=== PATIENT | female | born 1985 | race Caucasian/White ===

== ENCOUNTER → 2018-12-19 | Outpatient (CLI) | payer OTHER ==
--- NOTE | 2018-12-19 12:02 | Diagnostic Imaging Report ---
PROCEDURE: US Non-ob pelvis comp/trans. TECHNIQUE: Multiple realtime grayscale images were obtained of the pelvis in various projections endovaginally. Transabdominal imaging was also performed. INDICATION: Lower abdominal pain. FINDINGS: Uterus measures 8.7 x 5.5 x 3.8 cm. There appear to be tow separate endometrial canals suggestive of either a septate or a bicornuate uterus. Endometrial thickness is approximately 7-9 mm. No myometrial mass is seen. Ovaries are not well visualized. There is a cyst in the left adnexa approximately 3.5 cm in size and likely ovarian. No free fluid is seen. IMPRESSION: 1. 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 2. 3.5 cm left adnexal cyst, likely ovarian. No other significant abnormality is seen. Dictated by: Dictated on workstation # [id number]
== END ==
LOC: RAD 10:21
PROVIDERS: ATTEND Nurse Practitioner Family
DX: N83.8 Other noninflammatory disorders of ovary, fallopian tube and broad ligament (principal); R10.30 Lower abdominal pain, unspecified
CPT/HCPCS: 76830; 76856